=== PATIENT | female | born 1995 | race Caucasian/White ===

== ENCOUNTER 2017-06-10 15:48 | Outpatient (CLI) | payer OTHER ==
[2017-06-10] MEDS: LACTATED RINGER'S 1,000 ML IV ×2 (16:32→18:00)
[2017-06-10 16:46] LABS: ADD MAN DIFF? NO
[2017-06-10 16:56] LABS: ABNORMAL IP MESSAGE 1; BASOPHILS % 0.2 % (0.0-2.0); EOSINOPHILS # 0.1 10^3/ul (0.0-0.5); EOSINOPHILS % 0.8 % (0.0-7.0); HEMATOCRIT 30.3 % (37.0-47.0); HEMOGLOBIN 9.6 g/dl (12.0-16.0); LYMPHOCYTES # 2.2 10^3/ul (0.8-2.9); LYMPHOCYTES % 24.4 % (15.0-51.0); MEAN CORPUSCULAR HEMOGLOBIN 23.5 pg (29.0-33.0); MEAN CORPUSCULAR HGB CONC 31.7 g/dl (32.0-37.0); MEAN CORPUSCULAR VOLUME 74.1 fl (82.0-101.0); MEAN PLATELET VOLUME 11.7 fl (7.4-10.4); MONOCYTE # 0.6 10^3/ul (0.3-0.9); MONOCYTES % 6.9 % (0.0-11.0); NEUTROPHILS % 67.3 % (39.0-77.0); PLATELET COUNT 168 10^3/UL (140-415); RED BLOOD COUNT 4.09 10^6/ul (4.20-5.40); RED CELL DISTRIBUTION WIDTH 14.8 % (11.5-14.5)
[2017-06-10 16:58] LABS: POSITIVE DIFF @See below
[2017-06-10 17:30] LABS: ADD UMIC NO; UR ASCORBIC ACID NEGATIVE (NEGATIVE); UR BILIRUBIN (Dip) NEGATIVE (NEGATIVE); UR BLOOD (Dip) NEGATIVE (NEGATIVE); UR CLARITY SLIGHTLY CLOUDY (CLEAR); UR COLOR YELLOW (YELLOW); UR GLUCOSE (Dip) NEGATIVE (NEGATIVE); UR KETONES (Dip) NEGATIVE (NEGATIVE); UR LEUKOCYTE ESTERASE (Dip) NEGATIVE Leu/ul (NEGATIVE); UR NITRITE (Dip) NEGATIVE (NEGATIVE); UR RBC 0 /HPF (0-5); UR SPECIFIC GRAVITY (Dip) 1.021 (1.003-1.030); UR SQUAMOUS EPITHELIAL CELL FEW /HPF (FEW); UR TOTAL PROTEIN (Dip) NEGATIVE (NEGATIVE); UR UROBILINOGEN (Dip) 2+ mg/dL (NEGATIVE); UR WBC 1 /HPF (0-5)
== END 2017-06-10 21:38 | disposition home or self-care (01) ==
LOC: OBT 15:48 → L-D 15:50 → OBT 21:38
DX: O46.8X3 Other antepartum hemorrhage, third trimester (principal); Z3A.34 34 weeks gestation of pregnancy
CPT/HCPCS: 36415; 76817; 76818; 81001; 81003; 85025; 86850; 86900; 86901; 96360; 96361

== ENCOUNTER 2017-06-27 10:54 | Inpatient (IN) | payer OTHER ==
[2017-06-27 12:51] LABS: ADD UMIC YES; UR ASCORBIC ACID NEGATIVE (NEGATIVE); UR BACTERIA FEW /HPF (NONE SEEN); UR BILIRUBIN (Dip) NEGATIVE (NEGATIVE); UR BLOOD (Dip) NEGATIVE (NEGATIVE); UR CLARITY SLIGHTLY CLOUDY (CLEAR); UR COLOR YELLOW (YELLOW); UR GLUCOSE (Dip) NEGATIVE (NEGATIVE); UR KETONES (Dip) TRACE mg/dL (NEGATIVE); UR LEUKOCYTE ESTERASE (Dip) 2+ Leu/ul (NEGATIVE); UR MUCUS FEW /HPF (NONE SEEN); UR NITRITE (Dip) NEGATIVE (NEGATIVE); UR RBC 0 /HPF (0-5); UR SPECIFIC GRAVITY (Dip) 1.021 (1.003-1.030); UR SQUAMOUS EPITHELIAL CELL MODERATE /HPF (FEW); UR TOTAL PROTEIN (Dip) NEGATIVE (NEGATIVE); UR UROBILINOGEN (Dip) 1+ mg/dL (NEGATIVE); UR WBC 18 /HPF (0-5)
[2017-06-27] MEDS ORDERED: CARBOPROST 250 MCG INJ IM (14:00)
[2017-06-27] MEDS ORDERED: MISOPROSTOL 200 MCG TAB PR (14:00)
[2017-06-27] MEDS ORDERED: METHYLERGONOVINE 0.2 MG INJ IM (14:00)
[2017-06-27] MEDS ORDERED: LIDOCAINE 1% (MPF) 30 ML INJ INJ (14:00)
[2017-06-27] MEDS ORDERED: BUTORPHANOL 2 MG INJ IV ×2 (14:00)
[2017-06-27] MEDS ORDERED: OXYTOCIN 30 UNITS/LR 500 ML IV (14:00)
[2017-06-27] MEDS: LACTATED RINGER'S 1,000 ML IV ×3 (14:32→19:56)
[2017-06-27 14:36] LABS: ADD MAN DIFF? NO
[2017-06-27 14:44] LABS: BASOPHILS % 0.2 % (0.0-2.0); EOSINOPHILS # 0.1 10^3/ul (0.0-0.5); EOSINOPHILS % 0.5 % (0.0-7.0); HEMATOCRIT 32.1 % (37.0-47.0); HEMOGLOBIN 10.1 g/dl (12.0-16.0); LYMPHOCYTES # 2.2 10^3/ul (0.8-2.9); LYMPHOCYTES % 22.3 % (15.0-51.0); MEAN CORPUSCULAR HEMOGLOBIN 23.3 pg (29.0-33.0); MEAN CORPUSCULAR HGB CONC 31.5 g/dl (32.0-37.0); MEAN PLATELET VOLUME 11.9 fl (7.4-10.4); MONOCYTE # 0.5 10^3/ul (0.3-0.9); MONOCYTES % 5.4 % (0.0-11.0); NEUTROPHIL # 7.1 10^3/ul (1.6-7.5); NEUTROPHILS % 70.9 % (39.0-77.0); PLATELET COUNT 178 10^3/UL (140-415); RED BLOOD COUNT 4.34 10^6/ul (4.20-5.40); RED CELL DISTRIBUTION WIDTH 15.9 % (11.5-14.5)
[2017-06-27 14:54] LABS: INR 0.95; PROTIME 12.8 Sec (11.9-14.9)
[2017-06-27 14:55] LABS: PARTIAL THROMBOPLASTIN TIME 25.7 Sec (25.0-35.0)
[2017-06-27] MEDS: AMPICILLIN 2 GM/NS (PMX) 100 ML IVPB (16:52)
[2017-06-27] MEDS ORDERED: FENTAnyl 2MCG/ML-ROPIV 0.2% 100 ML (19:45)
[2017-06-27 20:21] LABS: HEPATITIS B SURFACE ANTIGEN NEGATIVE (NEGATIVE)
[2017-06-27] MEDS ORDERED: ONDANSETRON 4 MG INJ IV (20:30)
[2017-06-27] MEDS ORDERED: NALOXONE (0.4 MG/ML) INJ IV (20:30)
[2017-06-27] MEDS: AMPICILLIN 1 GM/NS (PMX) 50 ML IVPB (20:47)
[2017-06-28] MEDS: AMPICILLIN 1 GM/NS (PMX) 50 ML IVPB ×4 (00:45→12:57)
[2017-06-28] MEDS: LACTATED RINGER'S 1,000 ML IV ×2 (00:46→08:45)
[2017-06-28] MEDS: DIPHENHYDRAMINE 50 MG INJ IV (00:52)
[2017-06-28] MEDS: FENTAnyl 2MCG/ML-ROPIV 0.2% 100 ML BAG EPI (05:15)
[2017-06-28 14:55] LABS: RAPID PLASMA REAGIN NONREACTIVE (NR)
[2017-06-28] MEDS: OXYTOCIN 30 UNITS/LR 500 ML IV ×3 (15:07→20:19)
[2017-06-28] MEDS: IBUPROFEN 600 MG TAB PO ×2 (16:16→20:15)
[2017-06-28] MEDS ORDERED: CARBOPROST 250 MCG INJ IM (18:00)
[2017-06-28] MEDS ORDERED: METHYLERGONOVINE 0.2 MG INJ IM (18:00)
[2017-06-28] MEDS ORDERED: MISOPROSTOL 200 MCG TAB PR (18:00)
[2017-06-28] MEDS ORDERED: DIBUCAINE 1% 30 GM OINT TOP (18:00)
[2017-06-28] MEDS ORDERED: ACETAMINOPHEN 325 MG TAB PO (18:00)
[2017-06-28] MEDS: BENZOCAINE 20% 56 ML SPRAY TOP (18:31)
[2017-06-28] MEDS: WITCH HAZEL/GLYCERIN PAD PR (18:31)
[2017-06-28] MEDS: SENNA/DOCUSATE NA (8.6MG/50MG) TAB PO (21:00)
[2017-06-28] MEDS: FERROUS SULFATE (EC) 325 MG TAB PO (21:00)
[2017-06-28] MEDS: HYDROCODONE/APAP (5/325) TAB PO (21:00)
[2017-06-29] MEDS: IBUPROFEN 600 MG TAB PO ×5 (01:53→23:59)
[2017-06-29] MEDS: LACTATED RINGER'S 1,000 ML IV* ×2 (01:54→03:42)
[2017-06-29 08:47] LABS: ADD MAN DIFF? NO
[2017-06-29 08:51] LABS: WHITE BLOOD COUNT 11.4 10^3/ul (4.8-10.8)
[2017-06-29 08:51] LABS: ABNORMAL IP MESSAGE 1; BASOPHILS % 0.1 % (0.0-2.0); EOSINOPHILS # 0.1 10^3/ul (0.0-0.5); EOSINOPHILS % 1.2 % (0.0-7.0); HEMATOCRIT 29.3 % (37.0-47.0); HEMOGLOBIN 9.1 g/dl (12.0-16.0); LYMPHOCYTES # 3.3 10^3/ul (0.8-2.9); LYMPHOCYTES % 29.2 % (15.0-51.0); MEAN CORPUSCULAR HGB CONC 31.1 g/dl (32.0-37.0); MONOCYTE # 0.9 10^3/ul (0.3-0.9); MONOCYTES % 7.6 % (0.0-11.0); NEUTROPHILS % 60.9 % (39.0-77.0); PLATELET COUNT 176 10^3/UL (140-415); RED BLOOD COUNT 3.96 10^6/ul (4.20-5.40)
[2017-06-29 08:57] LABS: POSITIVE DIFF @See below
[2017-06-29] MEDS: FERROUS SULFATE (EC) 325 MG TAB PO ×2 (09:22→21:42)
[2017-06-29] MEDS: SENNA/DOCUSATE NA (8.6MG/50MG) TAB PO ×2 (09:22→21:42)
[2017-06-29] MEDS: INFLUENZA VIRUS VACCINE 0.5 ML (DISPENSING) IM* (09:26)
[2017-06-29] MEDS: AMOXICILLIN 500 MG CAP PO ×2 (13:47→21:42)
[2017-06-30] MEDS: IBUPROFEN 600 MG TAB PO ×3 (05:57→17:54)
[2017-06-30] MEDS: AMOXICILLIN 500 MG CAP PO ×2 (05:57→14:51)
[2017-06-30] MEDS: SENNA/DOCUSATE NA (8.6MG/50MG) TAB PO (08:53)
[2017-06-30] MEDS: FERROUS SULFATE (EC) 325 MG TAB PO (08:53)
[2017-06-30] MEDS: DIPHTH/TET/ACEL PERTUSS (ADULT) 0.5 ML VIAL IM* (12:08)
== END 2017-06-30 20:30 | disposition home or self-care (01) | DRG 775 ==
LOC: OBT 10:54 → PP1 06-28 17:41 → L-D 10:54 → OBT 13:47 → L-D 13:30
PROC: 10E0XZZ Delivery of Products of Conception, External Approach (ICD-10-PCS; principal; 2017-06-28)
DX: O60.14X0 Preterm labor third trimester with preterm delivery third trimester, not applicable or unspecified (principal); Z37.0 Single live birth; Z3A.36 36 weeks gestation of pregnancy
CPT/HCPCS: 62319; 81001; 85025; 85610; 85730; 86592; 86900; 86901; 87086; 87340; 90686; 90715; 99464